=== PATIENT | female | born 1960 | race Caucasian/White ===

== ENCOUNTER → 2024-07-28 14:14 | Outpatient (REF) | payer BC, SELFPAY | LOC: RCS 14:14 | PROVIDERS: ATTENDING PHYSICIAN Internal Medicine Cardiovascular Disease; FAMILY PHYSICIAN Nurse Practitioner Adult Health | DX: R07.2 Precordial pain (principal); I34.0 Nonrheumatic mitral (valve) insufficiency | CPT/HCPCS: 93017; 93350 ==

== ENCOUNTER → 2024-10-05 07:04 | Outpatient (REF) | payer BC, SELFPAY | LOC: HWRAD 07:04 | PROVIDERS: ATTENDING PHYSICIAN Internal Medicine; FAMILY PHYSICIAN Nurse Practitioner Adult Health | DX: R10.84 Generalized abdominal pain (principal) | CPT/HCPCS: 76700 ==

== ENCOUNTER → 2024-10-07 07:23 | Outpatient (REF) | payer BC, SELFPAY ==
[2024-10-07 08:33] LABS: % Basophils 1.1 % (0-2); % Eosinophils 1.7 % (0-6); % Lymphocytes 24.7 % (20.5-51.1); % Monocytes 13.5 % (1.7-9.3); Absolute Eosinophils 0.1 10^3/uL (0-0.7); Absolute Lymphocytes 0.9 10^3/uL (1.2-3.4); Absolute Monocytes 0.5 10^3/uL (0.1-0.6); Absolute Neutrophils 2.1 10^3/uL (1.4-6.5); Hematocrit 35.7 % (37.0-47.0); Hemoglobin 12.4 g/dL (12.0-16.0); Mean Corp Hgb Conc. 34.7 g/dL (33.0-37.0); Mean Corpuscular Hgb 32.3 pg (27.0-31.0); Mean Platelet Volume 8.8 fL (7.4-10.4); Nucleated Red Blood Cells % 0 %; Platelet Count 193 10^3/uL (130-400); Red Blood Cell Count 3.84 10^6/uL (4.20-5.40); White Blood Cell Count 3.5 10^3/uL (4.8-10.8)
[2024-10-07 09:11] LABS: ALT (SGPT) 19 U/L (0-35); AST (SGOT) 22 U/L (14-36); Albumin 4.2 g/dl (3.5-5.0); Alkaline Phosphatase 88 U/L (38-126); Blood Urea Nitrogen 12 mg/dl (7-17); Calcium 9.4 mg/dl (8.4-10.2); Carbon Dioxide 25 mmol/L (22-30); Chloride 101 mmol/L (98-107); Glucose 94 mg/dl (70-99); Lipase 95 U/L (23-300); Potassium 5.1 mmol/L (3.5-5.1); Sodium 135 mmol/L (135-145); Total Bilirubin 0.3 mg/dl (0.2-1.3); Total Protein 7.3 g/dl (6.3-8.2); eGFR > 60.00
== END ==
LOC: REG 07:23
PROVIDERS: ATTENDING PHYSICIAN Internal Medicine; FAMILY PHYSICIAN Nurse Practitioner Adult Health
DX: R10.84 Generalized abdominal pain (principal)
CPT/HCPCS: 36415; 80053; 83690; 85025

== ENCOUNTER 2024-10-21 18:06 | Emergency (ER) | payer BC, SELFPAY ==
[2024-10-21 18:11] VITALS: BP 154/88
[2024-10-21 18:23] LABS: % Basophils 0.4 % (0-2); % Eosinophils 0.7 % (0-6); % Immature Granulocytes 0.4 % (0-0.5); % Lymphocytes 33.9 % (20.5-51.1); % Monocytes 16.8 % (1.7-9.3); % Neutrophils 47.8 % (42.2-75.2); Absolute Monocytes 0.5 10^3/uL (0.1-0.6); Absolute Neutrophils 1.3 10^3/uL (1.4-6.5); Hematocrit 37.9 % (37.0-47.0); Hemoglobin 13.6 g/dL (12.0-16.0); Mean Corp Hgb Conc. 35.9 g/dL (33.0-37.0); Mean Corpuscular Volume 89.2 fL (81.0-99.0); Mean Platelet Volume 8.4 fL (7.4-10.4); Nucleated Red Blood Cells % 0 %; Platelet Count 158 10^3/uL (130-400); Red Blood Cell Count 4.25 10^6/uL (4.20-5.40); Red Cell Dist. Width 11.9 % (11.5-14.5); White Blood Cell Count 2.8 10^3/uL (4.8-10.8)
[2024-10-21 18:36] LABS: Lactic Acid 0.7 mmol/L (0.7-2.0)
[2024-10-21 18:40] LABS: ALT (SGPT) 18 U/L (0-35); AST (SGOT) 26 U/L (14-36); Albumin 4.2 g/dl (3.5-5.0); Alkaline Phosphatase 84 U/L (38-126); Blood Urea Nitrogen 9 mg/dl (7-17); Carbon Dioxide 24 mmol/L (22-30); Chloride 104 mmol/L (98-107); Glucose 108 mg/dl (70-99); Lipase 95 U/L (23-300); Potassium 3.8 mmol/L (3.5-5.1); Sodium 135 mmol/L (135-145); Total Bilirubin 0.5 mg/dl (0.2-1.3); Total Protein 7.1 g/dl (6.3-8.2); eGFR > 60.00
[2024-10-21 20:13] VITALS: BP 141/86
--- NOTE | 2024-10-21 22:22 | ED.GENMED ---
History of Present Illness
General
Chief Complaint: Abdominal Pain
Source: patient and family
Exam Limitations: none
Time Seen by Provider: 10/21/24 22:07
Nursing documentation reviewed up to this point in time: agreed with
History of Present Illness
History of Present Illness:
Pleasant 64-year-old female presents to the emergency department with right upper quadrant and diffuse abdominal pain. Patient states that this pain has been going on for weeks. She called general surgery at the request of her family doctor and
made an appointment to see Dr. Galvez to have her gallbladder removed. The surgery is not scheduled to occur until November. She has been having intermittent pain, with today being no exception. She states that she vomited for the first time ever in
her life this afternoon. She called her family doctor who suggested that she come to the emergency department to make sure that her 'gallbladder did not rupture'. Patient states that her abdominal pain has mostly resolved. She still feels
slightly nauseated, but attributes that to not having eaten all day.
Past History
Past History
ED Past Medical History: None
ED Past Surgical History: None
Social History
Tobacco: Non-smoker
Drug: None
Personal:
Living: with family
Review of Systems
Review of Systems
Allergies reviewed?: Yes
All Other Systems: ROS reviewed and negative except as documented in HPI and ROS
Constitutional: Reports no symptoms
EENT: Reports no symptoms
Respiratory: Reports no symptoms
ABD/GI: Reports abdominal pain, nausea and vomiting
: Reports no symptoms
Musculoskeletal: Reports no symptoms
Skin: Reports no symptoms
Psychiatric: Reports anxiety
Phy Exam
General Physical Exam
General Presentation: well appearing and no apparent distress
General Skin: warm and dry
General Habitus: normal
General Mental: alert
General Hydration: appears well hydrated
ENT Exam
ENT Exam: EOMI, pharynx normal, neck supple and normocephalic
Eye Exam
Eye Exam: PERRL, cornea clear and conjunctiva normal
Cardiovascular Exam
Cardiovascular Exam: regular rate/rhythm, no edema, no murmur and normal peripheral pulses
Pulmonary Exam
Pulmonary Exam: lungs clear, no respiratory distress, no rales, no crackles, no rhonchi, no stridor, no wheezing and no cough
Gastrointestinal Exam
Gastrointestinal Exam: normal bowel sounds, non tender, soft, no organomegaly, no pulsatile mass and non distended
Neurological Exam
Neurological Exam: alert, oriented x3, no motor deficits and speech normal
Musculoskeletal Exam
Musculoskeletal Exam: full ROM and no edema
Skin Exam
Skin Exam: normal color, warm/dry, no rash and no petechia
Psychiatric Exam
Psychiatric Exam: normal mood/affect
Course
Orders/Labs/Results
Orders:
Orders
10/21/24 18:17
Complete Blood Count/With Diff Urgent
Comprehensive Metabolic Panel Urgent
Lactate Level [Lactic Acid] Urgent
Lipase Urgent
10/21/24 22:21
Electrocardiogram (*1) Urgent
Reason for Study: Chest Pain
EKG- Treatment ONCE
US Abdomen Limited Urgent
Comment: KNOWN CHOLELITHIASIS AND DILATED CBD
Reason For Exam: ruq and diffuse abd pain, F/U FROM 10/05
10/21/24 23:56
Troponin I Urgent
Urinalysis Reflex To Culture Urgent
Date Specimen was Collected: 10/21/24
Time Specimen was Collected: 23:56
Urine Microscopic Reflex Cult Urgent
Urine Culture Urgent
KEYANNA Source: U
Specimen Description:
Date Specimen was Collected: 10/21/24
Time Specimen was Collected: 23:56
10/21/24 23:59
Electrocardiogram (*1) Urgent
Reason for Study: Abdominal Pain
Abnormal Lab Results
10/21/24 10/21/24
18:17 23:56
WBC 2.8 L 10^3/uL
(4.8-10.8)
MCH 32.0 H pg
(27.0-31.0)
Absolute Neuts (auto) 1.3 L 10^3/uL
(1.4-6.5)
Absolute Lymphs (auto) 1.0 L 10^3/uL
(1.2-3.4)
Monocytes % 16.8 H %
(1.7-9.3)
Glucose 108 H mg/dl
(70-99)
Urine Ketones 1+ A
(Negative)
Ur Occult Blood Reflex 4+ A
(Negative)
Leukocyte Esterase Rfl 2+ A
(Negative)
10/21/24 18:17
10/21/24 18:17
Vital Signs
Initial and Last Documented VS:
Initial Vital Signs
Temp Pulse Resp BP Pulse Ox
97.7 F 93 19 154/88 97
10/21/24 18:11 10/21/24 18:11 10/21/24 18:11 10/21/24 18:11 10/21/24 18:11
Last Documented Vital Signs
Temp Pulse Resp BP Pulse Ox
97.7 F 80 16 141/86 100
10/21/24 18:11 10/21/24 20:13 10/21/24 20:13 10/21/24 20:13 10/21/24 20:13
*EKG
Interpreted by ED Provider?: Yes
Interpretation: normal
Heart Rate: 68
Rate: normal
Rhythm: sinus
Sawyer: normal axis
Interval: normal interval
QRS Pattern: normal QRS
Ischemia: no ischemia
*Critical Care Note
Total Time (30-74mins, 75-104mins- exclusive of procedures): Not Applicable
Update Note
Update Note:
Discussed with lab work and ultrasound findings with patient. At this point she is pain-free. She does know about the gallstones. She is attempting to get her appointment with Dr. Galvez moved up.
Awaiting urinalysis and troponin
ED Attending Note
-
Portions of this chart may have been created with voice recognition software.� Occasional wrong word or��sound alike� substitutions may have occurred due to the inherent limitations of voice recognition software.
Discharge Plan
Departure
Patient Disposition: Home (Routine Discharge)
Date of Disposition: 10/22/24
Time of Disposition: 00:53
Patient with high blood pressure during this ER visit?: Yes
Condition: Fair
Discharge Problem:
Abdominal pain, Biliary colic
Instructions: Gallstones (DC), Abdominal Pain, BLOOD PRESSURE
Prescriptions:
No Action
rizatriptan [Maxalt] 10 MG tablet
10 mg PO PRN (Reason: migraine)
carbamazepine 200 MG tablet
400 mg PO HS
carbamazepine 200 MG tablet
200 mg PO .AM
cholecalciferol (vitamin D3) [Vitamin D3] 2,000 UNIT tablet
2,000 unit PO DAILY
Referrals:
Scotty Galvez MD [Active, Surgical]
Joy Walton CRNP [Family Provider, General]
Activity Restrictions/Additional Instructions:
Please keep your appointment with Dr. Galvez as discussed
Thank You for choosing [facility].
It was a pleasure meeting you and taking part in your care. We hope for your continued healing and wellness.
Please read discharge instructions in their entirety. However, they are for general education and may not describe your exact diagnosis at discharge. Information on your ER visit and medical conditions were discussed with you along with appropriate
follow up information...
If indicated, please take your medications as instructed and indicated on discharge paperwork.
Please schedule a follow up appointment as directed. Call to schedule an appointment
Please return to the emergency department with ANY change in, persisting, or worsening of symptoms. If any of your symptoms do not improve, or persist, or become more severe within 6-12 hours, please return to the emergency department for further
care.
Please return to the emergency department if you develop a headache, neck pain/stiffness, fever greater than 100.4F, chest pain, shortness of breath, persistent nausea, vomiting, slurred speech, difficulty walking, numbness/tingling, weakness, signs
of infection or any other symptoms that are worrisome to you.
If you have any questions or concerns please do not hesitate to call the Hospital at or E-mail me directly at [email or web address]
Interventions
Interventions:
*Risk Screen - Suicide Last Done: 10/21/24 18:11
*General Assessment Last Done: 10/22/24 00:12
*Neglect/Abuse Screening Last Done: 10/21/24 18:11
*ED- Fall Risk Assessment Last Done: 10/22/24 00:12
UA-Lfdvsc-Dxjuhnbywa Assessment Last Done: 10/22/24 00:12
Discharge Date and Time
Print Language: MOROCCAN
[2024-10-22 00:31] LABS: Urine Albumin Negative (Neg - Trace); Urine Bilirubin Negative (Negative); Urine Character Clear (Clear); Urine Color Yellow; Urine Glucose Negative (Negative); Urine Ketone 1+ (Negative); Urine Leukocyte 2+ (Negative); Urine Nitrite Negative (Negative); Urine Occult Blood 4+ (Negative); Urine Specific Gravity 1.015 (<1.030); Urine Urobilinogen Negative (Neg - 1+)
[2024-10-22 00:34] LABS: Troponin I < 0.012 ng/ml
[2024-10-22 01:02] LABS: Urine Squamous Cell 16-20 /LPF (Few)
[2024-10-22 01:04] LABS: Urine Bacteria Few (Negative); Urine Red Blood Cell 21-25 /HPF (0-2)
== END 2024-10-22 01:00 | disposition home or self-care (01) ==
LOC: EMR 18:06
PROVIDERS: Emergency Medicine; EMERGENCY PHYSICIAN Student in an Organized Health Care Education/Training Program; FAMILY PHYSICIAN Nurse Practitioner Adult Health
DX: R10.11 Right upper quadrant pain (principal); R11.2 Nausea with vomiting, unspecified; K80.70 Calculus of gallbladder and bile duct without cholecystitis without obstruction; R03.0 Elevated blood-pressure reading, without diagnosis of hypertension; R56.9 Unspecified convulsions; G43.909 Migraine, unspecified, not intractable, without status migrainosus; D68.00 Von Willebrand disease, unspecified; I45.81 Long QT syndrome; Z88.1 Allergy status to other antibiotic agents; Z88.5 Allergy status to narcotic agent
CPT/HCPCS: 99284; 76705; 80053; 81003; 81015; 83605; 83690; 84484; 85025; 87086; 93005

== ENCOUNTER → 2024-11-18 09:14 | Outpatient (REF) | payer BC, SELFPAY | LOC: MRI 3T 09:14 | PROVIDERS: ATTENDING PHYSICIAN Internal Medicine; FAMILY PHYSICIAN Nurse Practitioner Adult Health; REFERRING PHYSICIAN Surgery | DX: K83.8 Other specified diseases of biliary tract (principal) | CPT/HCPCS: 74183; A9575 ==

== ENCOUNTER 2024-12-06 06:11 | Day surgery (SDC) | payer BC, SELFPAY ==
[2024-11-24 08:04] LABS: Hematocrit 37.2 % (37.0-47.0); Hemoglobin 12.9 g/dL (12.0-16.0); Mean Corp Hgb Conc. 34.7 g/dL (33.0-37.0); Mean Corpuscular Volume 91.4 fL (81.0-99.0); Nucleated Red Blood Cells % 0 %; Platelet Count 203 10^3/uL (130-400); Red Cell Dist. Width 11.8 % (11.5-14.5)
[2024-11-24 08:36] LABS: ALT (SGPT) 18 U/L (0-35); AST (SGOT) 21 U/L (14-36); Albumin 4.8 g/dl (3.5-5.0); Alkaline Phosphatase 95 U/L (38-126); Blood Urea Nitrogen 13 mg/dl (7-17); Calcium 9.6 mg/dl (8.4-10.2); Carbon Dioxide 24 mmol/L (22-30); Chloride 104 mmol/L (98-107); Glucose 98 mg/dl (70-99); Potassium 4.3 mmol/L (3.5-5.1); Sodium 136 mmol/L (135-145); Total Protein 7.8 g/dl (6.3-8.2); eGFR > 60.00
[2024-11-27 18:40] LABS: Von Willebrands Factor Antigen 62 % (52-214)
[2024-12-06] VITALS (11 sets, daily range): BP systolic 132–179; BP diastolic 61–98; BMI 21.6
[2024-12-06] MEDS: NORMOSOL-R/PLASMALYTE-A 1000 IV (12:45)
[2024-12-06] MEDS: TYLENOL 1000 MG PO (13:00)
[2024-12-06] MEDS: DDAVP 54 MCG IV (14:18)
[2024-12-06] MEDS: TRANSDERM-SCOP 1 PATCH TRANSDERM (14:32)
--- NOTE | 2024-12-06 14:54 | W.SUR.PREOP ---
Pre-Operative Surgical Note
-
I have examined this patient prior to the performance of the scheduled procedure.
The patient's condition is unchanged from the time of the current History and
Physical and the patient is able to undergo the scheduled procedure.
--- NOTE | 2024-12-06 16:21 | W.IMMPOSTOP ---
Addendum entered and electronically signed by Scotty Galvez MD 12/06/24 16:30:
#[id number]
Original Note:
Surgical Immed Post Op Note
-
Primary Surgeon: Scotty Galvez MD
Assisting Surgeon: Nadine Hutchison PA-C
Pre-op Diagnosis: Symptomatic cholelithiasis
Post-op Diagnosis: Symptomatic cholelithiasis
Procedure Performed: Laparoscopic cholecystectomy with intraoperative cholangiogram
Anesthesia Type: GETA +0.25% Marcaine
Specimen / Cultures: Gallbladder
Estimated Blood Loss: 8 mL
Complications: None immediate
Operative Findings: Physiologically distended gallbladder with small stones. Cystic artery and branches controlled with clips. Cystic duct controlled with clips. Intraoperative cholangiogram normal. Gallbladder removed intact and extracted at
epigastric 12 mm trocar site. No significant intraoperative bleeding or oozing encountered in the setting of patient's history of von Willebrand's
The assistance of Nadine Hutchison PA-C was required due to the complexity of the procedure. During the procedure Nadine Hutchison PA-C assisted with trocar placement, managing the laparoscope and aided with gallbladder retraction as well as closure of the
surgical incision sites. I was present for the entirety of the operative procedure.
--- NOTE | 2024-12-06 17:51 | PTCARENOTE ---
Patient not ready for d/c. Patient taken back to PACU and report given to
--- NOTE | 2024-12-06 17:51 | SUR.PHASEII ---
Pt returned to pacu to continue phase 2 and be dc'd from pacu to home. Pt sleepy and not willing to take po's at this time. at bedside.
[2024-12-06] MEDS: ZOFRAN 4 MG IV (17:57)
== END 2024-12-06 19:25 | disposition home or self-care (01) ==
LOC: SDS 06:11
PROVIDERS: ATTENDING PHYSICIAN Surgery; FAMILY PHYSICIAN Nurse Practitioner Adult Health; OTHER PHYSICIAN Internal Medicine Hematology & Oncology
DX: K80.10 Calculus of gallbladder with chronic cholecystitis without obstruction (principal)
CPT/HCPCS: 47563; 36415; 74300; 76000; 80053; 85025; 85246; 86850; 86900; 86901; 88304; A4300; J2597

== ENCOUNTER → 2025-05-03 09:42 | Outpatient (REF) | payer BC, SELFPAY | LOC: WDC 09:42 | PROVIDERS: ATTENDING PHYSICIAN Nurse Practitioner Adult Health | DX: N64.4 Mastodynia (principal); N64.52 Nipple discharge | CPT/HCPCS: 76642; 77062; 77066 ==